=== PATIENT | male | born 1935 | race Caucasian/White ===

== ENCOUNTER 2016-05-01 11:32 | Emergency (ER) | payer MEDICARE, OTHER ==
[~2016-05-01] VITALS: Ht 180.3 cm; Wt 98.0 kg
[~2016-05-01 11:32] MED LIST: AMARYL4 MG OR; AMOXICILLIN500 MG PO; ATORVASTATIN CA40 MG PO; BAYER ASA325 MG PO; BENZONATATE200 MG PO; CARVEDILOL25 MG PO; CINNAMON500 MG PO; DOXYCYCL HYC100 MG PO; FISH OIL1000 MG PO; FLOMAX0.4 M1 PO; JANUMET1 TA1 OR; LASIX 10 MG10 MG/TA1 PO; LASIX 20 MG TAB20 MG PO; LISINOPRIL10 MG PO; MULTI PO; NITROQUICK0.3 MG; PREDNISONE20 MG PO; PRILOSEC20 MG PO; VIAGRA50 MG PO; VITAMIN C1000 MG PO
[2016-05-01] MEDS ORDERED: TRULICITY1.5 MG/0.5 IJ (12:19)
[2016-05-01] MEDS ORDERED: METFORMIN500 M2 PO (12:19)
[2016-05-01] MEDS ORDERED: GLIMEPIRIDE2 MG PO (12:21)
[2016-05-01] MEDS ORDERED: ACTOS15 MG PO (12:22)
[2016-05-01] MEDS ORDERED: MULTI VIT PO (12:23)
[2016-05-01] MEDS ORDERED: [UNRECOGNIZED DRUG - OTHER] PO (12:24)
[2016-05-01] MEDS ORDERED: NITROSTAT0.4 MG SL (12:26)
[2016-05-01] MEDS ORDERED: OMEPRAZOLE10 MG PO (12:26)
[2016-05-01] MEDS ORDERED: PREDNISONE10 MG PO (13:09)
[2016-05-01 13:12] VITALS: BP 138/79
== END 2016-05-01 13:15 | disposition home or self-care (01) ==
LOC: ED 11:32
PROC: 2W38X1Z Immobilization of Right Upper Extremity using Splint (ICD-10-PCS; principal; 2016-05-01)
DX: M19.031 Primary osteoarthritis, right wrist (principal); M25.531 Pain in right wrist

== ENCOUNTER 2021-03-11 09:25 | Emergency (ER) | payer MEDICARE ==
[~2021-03-11] VITALS: Ht 180.3 cm; Wt 70.0 kg
[~2021-03-11 09:25] MED LIST changes: +ACTOS15 MG PO; +GLIMEPIRIDE2 MG PO; +METFORMIN500 M2 PO; +MULTI VIT PO; +NITROSTAT0.4 MG SL; +OMEPRAZOLE10 MG PO; +PREDNISONE10 MG PO; +TRULICITY1.5 MG/0.5 IJ; +[UNRECOGNIZED DRUG - OTHER] PO
[2021-03-11 11:26] VITALS: BP 110/66
[2021-03-14] MEDS ORDERED: ELIQUIS2.5 MG (11:28)
== END 2021-03-11 11:30 | disposition home or self-care (01) ==
LOC: ED 09:25
DX: Z48.02 Encounter for removal of sutures (principal)